=== PATIENT | male | born 1975 | race American Indian/Alaskan Native ===

== ENCOUNTER 2021-08-21 18:07 | Emergency (ER) | payer MEDICAID ==
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
[2021-08-21] MEDS ORDERED: Sodium Chloride 0.9% 10 ML Syringe FLUSH PRN (19:54)
[2021-08-21] MEDS ORDERED: Iopamidol 612 MG/ML 150 ML Bottle IV PRN (20:11)
[2021-08-21] MEDS ORDERED: Sodium Chloride 0.9% 10 ML SDV FLUSH ONE (20:11)
[2021-08-21] MEDS ORDERED: Sodium Chloride 0.9% 100 ML IV SCH (20:15)
--- NOTE | 2021-08-21 21:37 | CRLCT ---
For Patients: As a result of the Century Cures Act, medical imaging exams and procedure reports are released immediately into your electronic medical record. You may view this report before your referring provider. If you have questions, please contact your health care provider. INDICATION: Right upper quadrant pain. TECHNIQUE: CT abdomen and pelvis acquired with 150 mL Isovue-300 contrast. COMPARISON: None. FINDINGS: Lower chest: Bilateral dependent atelectasis. Scattered punctate calcified granulomas. Few punctate noncalcified pulmonary nodules are noted, for example a 0.3 cm nodule in the anterior left upper lobe (series 2, image 4). Liver: No suspicious focal hepatic lesion. Gallbladder and bile ducts: Unremarkable. Pancreas: Unremarkable. Spleen: Unremarkable. Adrenal glands: Unremarkable. Kidneys: Kidneys enhance symmetrically, without hydronephrosis. Punctate nonobstructing calculi in the lower pole of the left kidney. Retroperitoneum: No lymphadenopathy. Bowel and mesentery: Bowel is nonobstructed. Normal appendix. Bladder: Unremarkable for degree of distension. Reproductive organs: No significant prostatomegaly. Pelvic lymph nodes: No lymphadenopathy. Vessels: Mild atherosclerotic calcifications. Abdominal wall: No acute abdominal wall abnormality. Bones: Multilevel degenerative changes of the spine. No suspicious/aggressive focal osseous lesion. Grade 1 anterolisthesis of L5 on S1 secondary to bilateral L5 pars defects. IMPRESSION: 1. No calcified gallstones. 2. Bowel is nonobstructed. Normal appendix. 3. Punctate nonobstructing calculi in the lower pole of the left kidney. 4. Scattered punctate pulmonary nodules measuring up to 0.3 cm. Consider optional follow up CT chest in 12 months, per Fleischner guidelines. Please note that all CT scans at this facility use dose modulation, iterative reconstruction, and/or weight-based dosing when appropriate to reduce radiation dose to as low as reasonably achievable. Dictated by Leah Puente MD @ 08/21/2021 9:36:50 PM (Electronically Signed)
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
== END 2021-08-21 22:01 ==
LOC: JP.ED 18:07
DX: R10.11 Right upper quadrant pain (principal); E11.42 Type 2 diabetes mellitus with diabetic polyneuropathy; I83.12 Varicose veins of left lower extremity with inflammation; I83.11 Varicose veins of right lower extremity with inflammation; Z72.0 Tobacco use; Z79.899 Other long term (current) drug therapy; Z79.84 Long term (current) use of oral hypoglycemic drugs
CPT/HCPCS: 36415; 71045; 74177; 80053; 82272; 83690; 84484; 85025; 86140; 93005; 99285; Q9967

== ENCOUNTER 2021-08-28 22:07 | Emergency (ER) | payer OTHER, MEDICAID ==
[2021-08-28] MEDS ORDERED: Ketorolac 30 MG/ML SDV IM ONE (22:30)
[2021-08-28] MEDS ORDERED: Methocarbamol 500 MG Tab PO ONE (22:30)
[2021-08-28] MEDS ORDERED: LORazepam 2 MG/ML SDV IVPUSH ONE (23:33)
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
--- NOTE | 2021-08-29 00:47 | CRLCT ---
For Patients: As a result of the Cures Act, medical imaging exams and procedure reports are released immediately into your electronic medical record. You may view this report before your referring provider. If you have questions, please contact your health care provider. Indication: Repeated falls, neck pain, left paresthesias Technique: Nonenhanced axial CT imaging through the cervical spine. Sagittal and coronal reconstructions are provided. Comparison: None Findings: The cervical vertebral bodies are normal in height. There is no evidence of acute fracture. Spinal alignment is normal. The atlantoaxial and atlantooccipital relationships are maintained. There is no prevertebral edema. Degenerative changes are noted at the lower cervical levels. Spinal stenosis and bilateral neural foraminal stenosis is noted at C6-7. Impression: 1. No acute fracture or traumatic malalignment. 2. Degenerative changes, as above. Please note that all CT scans at this facility use dose modulation, iterative reconstruction, and/or weight-based dosing when appropriate to reduce radiation dose to as low as reasonably achievable. Dictated by Ashok Rodgers MD @ 08/29/2021 12:47:14 AM (Electronically Signed)
[2021-08-29] MEDS ORDERED: SODIUM CHLORIDE 0.9% IV ONE (00:49)
[2021-08-29] MEDS ORDERED: LEVETIRACETAM IV ONE (00:49)
--- NOTE | 2021-08-29 00:52 | CRLCT ---
For Patients: As a result of the Century Cures Act, medical imaging exams and procedure reports are released immediately into your electronic medical record. You may view this report before your referring provider. If you have questions, please contact your health care provider. Indication: Repeated falls, left-sided paresthesias Technique: Nonenhanced axial CT imaging through the head. Sagittal and coronal reconstructions are provided. Comparison: None Findings: There is no evidence of intracranial hemorrhage or cerebral edema. [place]-white matter differentiation is preserved. The ventricles are normal in size. The basal cisterns are patent. The calvarium is intact. The visualized paranasal sinuses and mastoid air cells are aerated. Impression: No acute intracranial process. Please note that all CT scans at this facility use dose modulation, iterative reconstruction, and/or weight-based dosing when appropriate to reduce radiation dose to as low as reasonably achievable. Dictated by Ashok Rodgers MD @ 08/29/2021 12:51:47 AM (Electronically Signed)
--- NOTE | 2021-08-29 01:00 | CRLCT ---
For Patients: As a result of the Cures Act, medical imaging exams and procedure reports are released immediately into your electronic medical record. You may view this report before your referring provider. If you have questions, please contact your health care provider. Indication: Repeated falls, left-sided paresthesias Technique: Nonenhanced axial CT imaging through the lumbar spine. Sagittal and coronal reconstructions are provided. Comparison: None Findings: The lumbar vertebral bodies are normal in height. There is no evidence of acute fracture. Spinal alignment is normal. There is no prevertebral edema or paraspinal hematoma. Mild degenerative changes are present. There is no appreciable narrowing of the spinal canal neural foramina. Impression: No acute fracture or traumatic malalignment. Please note that all CT scans at this facility use dose modulation, iterative reconstruction, and/or weight-based dosing when appropriate to reduce radiation dose to as low as reasonably achievable. Dictated by Ashok Rodgers MD @ 08/29/2021 12:59:22 AM (Electronically Signed)
--- NOTE | 2021-08-29 01:07 | CRLCT ---
For Patients: As a result of the Cures Act, medical imaging exams and procedure reports are released immediately into your electronic medical record. You may view this report before your referring provider. If you have questions, please contact your health care provider. Indication: Multiple falls, left-sided paresthesias Technique: Nonenhanced axial CT imaging through the lumbar spine. Sagittal and coronal reconstructions are provided. Comparison: None Findings: The lumbar vertebral bodies are normal in height. There is no evidence of acute fracture. There is no prevertebral edema or paraspinal hematoma. There are chronic pars interarticularis defects at L5 bilaterally. There is grade 2 anterolisthesis of L5 on S1. The L5-S1 neural foramina are markedly narrowed bilaterally. Alignment is normal at the remaining lumbar levels. There is no appreciable lumbar spine stenosis. Impression: 1. No acute fracture or traumatic malalignment. 2. 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 Please note that all CT scans at this facility use dose modulation, iterative reconstruction, and/or weight-based dosing when appropriate to reduce radiation dose to as low as reasonably achievable. Dictated by Ashok Rodgers MD @ 08/29/2021 1:05:16 AM (Electronically Signed)
== END 2021-08-29 02:11 ==
LOC: JP.ED 22:07
DX: I83.12 Varicose veins of left lower extremity with inflammation (principal); I83.11 Varicose veins of right lower extremity with inflammation; M47.812 Spondylosis without myelopathy or radiculopathy, cervical region; M47.816 Spondylosis without myelopathy or radiculopathy, lumbar region; R56.9 Unspecified convulsions; I25.2 Old myocardial infarction; E11.42 Type 2 diabetes mellitus with diabetic polyneuropathy; Z79.899 Other long term (current) drug therapy; Z79.84 Long term (current) use of oral hypoglycemic drugs; Z72.0 Tobacco use
CPT/HCPCS: 36415; 70450; 72125; 72128; 72131; 80053; 83735; 84100; 85025; 85651; 86140; 96365; 96372; 96375; 99284; A9270; J1885; J1953; J2060